=== PATIENT | male | born 1945 | race Caucasian/White ===

== ENCOUNTER → 2016-07-19 | Day surgery (SDC) | payer MEDICARE, OTHER ==
[~2016-07-19] VITALS: Ht 180.3 cm; Wt 111.6 kg
[~2016-07-19] MED LIST: ASPIRIN (CHILDR81 MG PO; ASPIRIN LO-DOSE81 MG PO; BETAPACE (GENER80 MG PO; CENTRUM COMPLE1 EACH PO; COLACE100 MG PO; CRESTOR20 MG PO; GLUCOPHAGE XR500 M1 PO; K-TAB ER20 MEQ PO; LASIX40 MG PO; LOPRESSOR50 MG PO; OMEGA-3 KRILL1 EAC2 PO; OSTEO BI-FLEX1 EAC1 PO; PLAVIX75 MG PO; PRADAXA150 MG PO; PRINIVIL OR ZES10 MG PO
--- NOTE | ~2016-07-19 | OR ---
PATIENT'S NAME: HOSEA SMALL [facility] AGE: 71 Y [address] ROOM: [place] [id number] LOCATION: [facility] – [place] ADMIT DATE: 07/19/2016 OR/Procedure Report DISCHARGE DATE: FAMILY PHYSICIAN: Jd Craft MD ATTENDING PHYSICIAN: Jarred Holguin SURGEON: Jarred Holguin MD [facility] MAGISTRATE: DATE OF PROCEDURE: 07/19/2016 PRIMARY CARE: Jd Craft MD. INDICATION: Atrial fibrillation refractory to antiarrhythmic drug therapy. DESCRIPTION OF PROCEDURE: Mr. Small was brought to the preoperative suite in the fasting state and prepped and draped in normal manner. Patches placed in the AP dimension. Subsequently 90 joules synchronized therapy was delivered through the nurse telephone station installer. Subsequently 200 joules synchronized therapy was delivered with amish of normal sinus rhythm. The patient tolerated the procedure without difficulty and no complications were identified. A 12-lead EKG is pending at the time of this dictation. CONCLUSION: 1. Successful amish of normal sinus rhythm using DC cardioversion. 2. 12-lead EKG is pending at the time of this dictation. The patient will follow up with me in two weeks. JARRED HOLGUIN MD DJM/modl /[id number] CC: Jd Craft MD d: 07/29/16 1047 t: 07/29/16 1134, OPERATIVE SUMMARY
== END ==
LOC: EDSTATUS 09:00 → GPOC 09:00 → GSDC 09:02
PROC: 5A2204Z Restoration of Cardiac Rhythm, Single (ICD-10-PCS; principal; 2016-07-19)
DX: I48.0 Paroxysmal atrial fibrillation (principal); I25.10 Atherosclerotic heart disease of native coronary artery without angina pectoris; E78.5 Hyperlipidemia, unspecified; I10 Essential (primary) hypertension; E11.9 Type 2 diabetes mellitus without complications; E66.9 Obesity, unspecified; Z68.35 Body mass index [BMI] 35.0-35.9, adult; Z87.891 Personal history of nicotine dependence
CPT/HCPCS: J2001; J7030